=== PATIENT | male | born 1985 | race Caucasian/White ===

== ENCOUNTER 2017-09-22 17:53 | Emergency (ER) | payer MEDICAID ==
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
== END 2017-09-22 20:08 | disposition home or self-care (01) ==
LOC: JD.ED 17:53
DX: R41.0 Disorientation, unspecified (principal); Z87.891 Personal history of nicotine dependence; Z88.1 Allergy status to other antibiotic agents; Z88.5 Allergy status to narcotic agent; Z88.6 Allergy status to analgesic agent
CPT/HCPCS: 36415; 80053; 81003; 85025; 99283; 99285